=== PATIENT | male | born 1960 | race Caucasian/White ===

== ENCOUNTER 2023-05-31 00:12 | Inpatient (IN) | payer MEDICAID ==
[~2023-05-31] VITALS: Ht 167.6 cm; Wt 65.9 kg
[~2023-05-31 00:12] MED LIST: ACET-1008 PO; ASPI81TA53 PO; ATOR20TA66 PO; CLIN-232 PO; EMPA10TA PO; HYDR-3964 PO; LYR75C PO; NICO-731 TOP; OMEP40CA21 PO
[2023-05-31] MEDS: HYDROcodone/acetaminophen 5mg/325mg tablet PO ONE (01:12)
[2023-05-31 01:34] LABS: ALBUMIN 2.1 G/DL (3.4-5.0); ANION GAP 8 (8-16); BLOOD UREA NITROGEN 8 MG/DL (7-18); BUN/CREATININE RATIO 8.1 (10.0-20.0); CALCIUM 8.2 MG/DL (8.5-10.1); CHLORIDE 100 MMOL/L (99-107); CREATININE 0.99 MG/DL (0.60-1.10); GLUCOSE 107 MG/DL (70-104); POTASSIUM 4.4 MMOL/L (3.5-5.1); SODIUM 136 MMOL/L (135-145); TOTAL CARBON DIOXIDE 28.2 MMOL/L (24-32); eCRCL 69 ML/MIN; eGFR 76 ML/MIN
[2023-05-31 02:13] LABS: BASOPHILS % (AUTO) 0.6 % (0-1); EOSINOPHILS # (AUTO) 0.2 X10'3 (0-0.9); LYMPHOCYTES # (AUTO) 1.2 X10'3 (1.1-4.8); LYMPHOCYTES % (AUTO) 15.6 % (21-51); MEAN CORPUSCULAR HEMOGLOBIN 29.7 PG (27.0-31.0); MEAN CORPUSCULAR HGB CONC 33.7 g/dL (33.0-36.5); MEAN CORPUSCULAR VOLUME 88.1 FL (78-98); MEAN PLATELET VOLUME 6.9 FL (7.4-10.4); MONOCYTES # (AUTO) 0.6 X10'3 (0-0.9); MONOCYTES % (AUTO) 8.5 % (2-12); NEUTROPHILS # (AUTO) 5.4 X10'3 (1.8-7.7); NEUTROPHILS % (AUTO) 72.3 % (42-75); PLATELET COUNT 364 X10'3 (140-440); RED BLOOD COUNT 2.48 X10'6 (4.70-6.10); RED CELL DISTRIBUTION WIDTH 14.3 % (11.5-14.5); WHITE BLOOD COUNT 7.4 X10'3 (4.5-11.0)
[2023-05-31 02:18] LABS: HEMATOCRIT 21.8 % (42.0-52.0); HEMOGLOBIN 7.4 g/dl (14.0-17.9)
[2023-05-31] MEDS ORDERED: dextrose 50%-water 50ml dispensing syringe IV PRN ×2 (02:40)
[2023-05-31] MEDS ORDERED: insulin Lispro (HumaLOG) vial - multi-dose SQ SCH (02:40)
[2023-05-31] MEDS ORDERED: potassium Cl 20 mEq SR tablet PO PRN ×2 (02:40)
[2023-05-31] MEDS ORDERED: magnesium Cl slow-release 64mg tablet PO PRN (02:40)
[2023-05-31] MEDS ORDERED: DEXTROSE 15 GM of carb/4 tabs (each vial/BOTTLE has 4 tablets) PO PRN ×2 (02:40)
[2023-05-31] MEDS ORDERED: potassium Cl 40MEQ/1/2NS 520ml 520 ML IV PRN (02:40)
[2023-05-31] MEDS ORDERED: magnesium 4gm in 100ml NS 100 ML IV PRN (02:40)
[2023-05-31] MEDS ORDERED: glucagon, human recombinant 1mg kit SUBCUT PRN (02:40)
[2023-05-31] MEDS ORDERED: magnesium 2GM in 50ml NS 50 ML IV PRN (02:40)
[2023-05-31] MEDS ORDERED: ondansetron/PF 4mg/2ml inj IV PRN (02:40)
[2023-05-31] MEDS ORDERED: mag hydrox/Alum hydrox/simeth 30ml oral suspension PO PRN (02:40)
[2023-05-31] MEDS ORDERED: magnesium hydroxide 30ml (MOM) UD suspension PO PRN (02:40)
[2023-05-31] MEDS ORDERED: acetaminophen 325mg tablet PO PRN (02:40)
[2023-05-31] MEDS: MESSAGE TO PHARMACY PO ONE (03:25)
[2023-05-31] MEDS: midodrine tablet 2.5 MG TABLET PO STA (04:06)
[2023-05-31 07:30] VITALS: BP 154/70; PULSE 75; RESP 14; TEMP 97.4; O2SAT 99
[2023-05-31 08:00] VITALS: BP_SYST 108; BP_SYST 115; BP_SYST 127; BP_SYST 131; BP_SYST 138; BP_DIAS 56; BP_DIAS 59; BP_DIAS 68; BP_DIAS 72; BP_DIAS 75; PULSE 101; PULSE 74; PULSE 82; PULSE 94; PULSE 98; RESP 14
[2023-05-31] MEDS: docusate sod 100mg capsule PO SCH (08:00)
[2023-05-31] MEDS: K and/or MAG REPLACEMENT MC SCH (08:00)
[2023-05-31] MEDS: morphine 2 MG/ML inj. syringe IV PRN (09:53)
[2023-05-31 10:06] LABS: % IRON SATURATION 23 % (11-46); IRON 34 UG/DL (53-167); TOTAL IRON BINDING CAPACITY 148 UG/DL (259-388)
[2023-05-31] MEDS: clindamycin 150mg capsule PO SCH (10:18)
[2023-05-31] MEDS: midodrine 5mg tablet PO SCH (10:18)
[2023-05-31 11:00] VITALS: BP 138/75; PULSE 76; RESP 18; TEMP 97.1; O2SAT 98
[2023-05-31] MEDS ORDERED: ATOR20TA66 PO (12:10)
[2023-05-31] MEDS ORDERED: MIDO5TAB4 PO (12:10)
[2023-05-31] MEDS ORDERED: ASPI-1265 PO (12:10)
[2023-05-31] MEDS ORDERED: METF-1203 PO (12:11)
[2023-05-31] MEDS ORDERED: FERR324T4 PO (12:12)
[2023-05-31] MEDS ORDERED: insulin glargine (Lantus) pen - multi-dose SQ SCH (21:00)
[2023-06-13] MEDS ORDERED: OMEP40CA21 PO (21:01)
[2023-06-23] MEDS ORDERED: GLIP5TAB23 PO (13:24)
[2023-06-23] MEDS ORDERED: DOCU100C40 PO (13:24)
[2023-06-23] MEDS ORDERED: OXYC-658 PO (13:24)
[2023-06-23] MEDS ORDERED: LISI5TAB22 PO (13:28)
== END 2023-05-31 15:45 | disposition home or self-care (01) | DRG 204 ==
LOC: ER 00:12 → ED HOLD 02:45 → SUR 3N 07:25
PROVIDERS: ADMIT Internal Medicine; ATTEND Internal Medicine
DX: I95.1 Orthostatic hypotension (principal); E43 Unspecified severe protein-calorie malnutrition; E11.52 Type 2 diabetes mellitus with diabetic peripheral angiopathy with gangrene; G90.9 Disorder of the autonomic nervous system, unspecified; E11.40 Type 2 diabetes mellitus with diabetic neuropathy, unspecified; E11.319 Type 2 diabetes mellitus with unspecified diabetic retinopathy without macular edema; D64.9 Anemia, unspecified; E11.65 Type 2 diabetes mellitus with hyperglycemia; E78.5 Hyperlipidemia, unspecified; I25.10 Atherosclerotic heart disease of native coronary artery without angina pectoris; Z68.23 Body mass index [BMI] 23.0-23.9, adult; Z95.5 Presence of coronary angioplasty implant and graft; Z72.0 Tobacco use; Z88.0 Allergy status to penicillin; Z79.82 Long term (current) use of aspirin; Z79.899 Other long term (current) drug therapy; Z79.84 Long term (current) use of oral hypoglycemic drugs; Z85.72 Personal history of non-Hodgkin lymphomas
CPT/HCPCS: 36415; 70450; 80048; 82948; 83540; 83550; 85025; 87070; 87075; 97161; 97530; 97535; 99285; G0378; J1815; J2270

== ENCOUNTER 2023-07-05 08:13 | Emergency (ER) | payer OTHER ==
[~2023-07-05] VITALS: Ht 167.6 cm; Wt 63.6 kg
[~2023-07-05 08:13] MED LIST changes: -ACET-1008 PO; -ASPI81TA53 PO; -ATOR20TA66 PO; -CLIN-232 PO; +DOCU100C40 PO; -EMPA10TA PO; +GLIP5TAB23 PO; -HYDR-3964 PO; +LISI5TAB22 PO; -LYR75C PO; -NICO-731 TOP; +OXYC-658 PO
[2023-07-05 08:27] VITALS: BP 154/78; PULSE 91; RESP 18; TEMP 97.6; O2SAT 100
== END 2023-07-05 10:32 | disposition home or self-care (01) ==
LOC: ER 08:13
DX: Z89.511 Acquired absence of right leg below knee (principal); Z48.02 Encounter for removal of sutures; I12.9 Hypertensive chronic kidney disease with stage 1 through stage 4 chronic kidney disease, or unspecified chronic kidney disease; E11.22 Type 2 diabetes mellitus with diabetic chronic kidney disease; N18.9 Chronic kidney disease, unspecified; F32.A Depression, unspecified; E78.00 Pure hypercholesterolemia, unspecified; Z88.8 Allergy status to other drugs, medicaments and biological substances; Z79.899 Other long term (current) drug therapy
CPT/HCPCS: 99281